=== PATIENT | male | born 1970 | race Caucasian/White ===

== ENCOUNTER 2017-04-21 16:01 | Emergency (ER) | payer OTHER ==
[2017-04-21 17:16] VITALS: BP 140/86; PULSE 80; RESP 18; O2SAT 100
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
[2017-04-21] MEDS ORDERED: KETOROLAC TROMETHAMINE 60 MG/2 ML (IM) VIAL IM ONE (17:45)
[2017-04-21 22:30] VITALS: BP 167/87; PULSE 73; RESP 17; TEMP 98.9; O2SAT 96
[2017-04-22 06:00] VITALS: BP 172/92; PULSE 69; RESP 17; TEMP 98; O2SAT 96
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
[2017-04-22 14:10] VITALS: BP 161/98; PULSE 73; RESP 18; O2SAT 100
--- NOTE | 2017-04-22 16:25 | PD ---
Physical Exam Narrative I was asked by the psych department to discharge patient after patient was cleared and Mariee act was lifted by psych. Patient was previously medically cleared by previous provider. Please see their documentation for full H&P. Patient denies any homicidal or suicidal ideations. Denies any medical concerns at this time. Patient's only asking for something to eat prior to being discharged. Data Data Last Documented VS Vital Signs Date Time Temp Pulse Resp B/P (MAP) Pulse Ox O2 Delivery O2 Flow Rate FiO2 04/22/17 14:10 73 18 161/98 (119) 100 Room Air 04/22/17 06:00 98.0 Orders Orders Diet Regular Basic (04/21/17 Dinner) Ketorolac Inj (Toradol Inj) (04/21/17 17:45) Diet Regular Basic (04/22/17 Breakfast) Diet Regular Basic (04/22/17 Lunch) MDM Supervised Visit with [facility]: No Narrative Course Patient in no obvious distress upon re-evaluation. Any questions/concerns in reference to patient diagnosis/condition discussed and clarified prior to patient's discharge. Reinforced sheer importance of close follow up with patient 's primary physician or primary care clinic. Instructed patient to return to ED immediately, if symptoms return/worsen. Pt showed understanding of above instructions. Further instructions and recommendations were detailed in discharge paperwork. Pt ambulated without difficulty out of ED at discharge. Diagnosis Primary Impression: Suicidal ideation Referrals: [facility] Patient Instructions: General Instructions Additional Instruction: Follow-up with your primary care physician, primary care clinic, and/or [facility] as soon as possible for reevaluation. Return to the emergency department if symptoms get worse. Scripts No Active Prescriptions or Reported Meds Disposition: 01 DISCHARGE HOME Condition: Stable Mahesh Ramires Apr 22, 2017 16:25
== END 2017-04-22 17:43 | disposition home or self-care (01) ==
LOC: NEPJ 16:01
DX: F43.21 Adjustment disorder with depressed mood (principal); F10.10 Alcohol abuse, uncomplicated; I10 Essential (primary) hypertension; Z72.0 Tobacco use
CPT/HCPCS: 96372; 99284; J1885